=== PATIENT | female | born 1985 | race Two or more races ===

== ENCOUNTER → 2021-07-03 | Outpatient (CLI) | payer MEDICAID ==
[2021-07-03 09:16] LABS: Basophils # (auto) 0.1 10 ^3/uL (0-0.2); Eosinophils # (auto) 0.2 10 ^3/uL (0-0.8); Lymphocytes # (auto) 2.3 10 ^3/uL (0.4-5.4)
[2021-07-03 09:20] LABS: Basophils % (auto) 0.9 % (0.0-2.0); Hematocrit 38.6 % (36.0-46.0); Hemoglobin 12.7 g/dL (12.2-16.2); Lymphocytes % (auto) 28.7 % (10.0-50.0); Mean Corpuscular Hemoglobin 25.1 pg (28.0-32.0); Monocytes # (auto) 0.6 10 ^3/uL (0-1.3); Neutrophils % (auto) 61.4 % (37.0-80.0); Red Blood Cells 5.07 10^6/uL (4.0-5.20); White Blood Cell 8.2 10^3/uL (4.4-10.8)
[2021-07-03 09:49] LABS: Albumin 3.1 g/dL (3.4-5.0); Calcium 8.2 mg/dL (8.5-10.1)
[2021-07-03 09:55] LABS: BUN/Creatinine Ratio 23.4; Bilirubin, Total 0.3 mg/dL (0.2-1.0); Total Protein 7.2 g/dL (6.4-8.2)
== END | disposition home or self-care (01) ==
LOC: LAB 08:27
PROVIDERS: ATTEND Student in an Organized Health Care Education/Training Program
DX: G60.9 Hereditary and idiopathic neuropathy, unspecified (principal)
CPT/HCPCS: 36415; 80053; 80061; 83036; 84443; 85025

== ENCOUNTER 2021-07-19 09:54 | Emergency (ER) | payer MEDICAID ==
[~2021-07-19] VITALS: Ht 152.4 cm; Wt 90.7 kg
[2021-07-19 10:27] LABS: Urine Bacteria FEW /hpf (None Seen); Urine Blood 1+ /uL (Negative); Urine Mucus FEW (None Seen); Urine Specific Gravity 1.018 (1.001-1.035); Urine WBC 5 /hpf (0 - 5)
[2021-07-19 10:39] LABS: Basophils # (auto) 0.1 10 ^3/uL (0-0.2); Basophils % (auto) 1.1 % (0.0-2.0); Eosinophils # (auto) 0.1 10 ^3/uL (0-0.8); Lymphocytes # (auto) 2.2 10 ^3/uL (0.4-5.4); Lymphocytes % (auto) 24.2 % (10.0-50.0); Monocytes # (auto) 0.6 10 ^3/uL (0-1.3); Neutrophils # (auto) 6.1 10 ^3/uL (1.6-8.6)
[2021-07-19 10:40] LABS: Eosinophils % (auto) 1.2 % (0.0-7.0); Hematocrit 39.3 % (36.0-46.0); Hemoglobin 12.8 g/dL (12.2-16.2); Mean Corpuscular Hgb Conc. 32.5 g/dL (32.0-36.0); Mean Corpuscular Volume 76.8 fL (80.0-100.0); Monocytes % (auto) 6.2 % (0.0-12.0); Neutrophils % (auto) 67.3 % (37.0-80.0); Red Blood Cells 5.12 10^6/uL (4.0-5.20); Red Cell Distribution Width 16.2 % (11.8-14.3)
[2021-07-19 10:58] LABS: Albumin 3.3 g/dL (3.4-5.0); Calcium 8.9 mg/dL (8.5-10.1); Potassium 3.7 mmol/L (3.5-5.1)
[2021-07-19 11:01] LABS: BUN/Creatinine Ratio 16.1; Bilirubin, Total 0.2 mg/dL (0.2-1.0); Total Protein 7.7 g/dL (6.4-8.2)
[2021-07-19 14:10] VITALS: BP 123/53
== END 2021-07-19 14:38 | disposition home or self-care (01) ==
LOC: ER 09:54
DX: O20.0 Threatened abortion (principal); O23.41 Unspecified infection of urinary tract in pregnancy, first trimester; N39.0 Urinary tract infection, site not specified; Z3A.01 Less than 8 weeks gestation of pregnancy
CPT/HCPCS: 36415; 76801; 76817; 80053; 81001; 84702; 85025

== ENCOUNTER 2022-01-16 18:22 | Observation (INO) | payer MEDICAID ==
[~2022-01-16] VITALS: Ht 152.4 cm; Wt 90.7 kg
[2022-01-16] MEDS ORDERED: ceFAZolin 1GM/50ML 50 ML IV ONE (20:00)
[2022-01-16] MEDS ORDERED: LACTATED RINGER'S 1,000 ML IV SCH ×2 (20:00→23:30)
[2022-01-16] MEDS ORDERED: LACTATED RINGER'S 1,000 ML IV ONE (20:00)
[2022-01-16] MEDS: TERBUTALINE SULFATE 1 MG/ML 1ML VIAL SC SCH (20:31)
[2022-01-16] MEDS ORDERED: ACETAMINOPHEN 325 MG TAB PO ONE (20:45)
[2022-01-16 21:23] LABS: Urine Bacteria NONE SEEN /hpf (None Seen); Urine Blood Negative /uL (Negative); Urine Specific Gravity 1.013 (1.001-1.035); Urine WBC 53 /hpf (0 - 5); Urine WBC Clumps PRESENT /hpf (None Seen)
[2022-01-16] MEDS ORDERED: NIFEdipine 10 MG CAP PO ONE (21:30)
[2022-01-17] MEDS ORDERED: PREN-96 OR (03:31)
[2022-01-17] MEDS ORDERED: ceFAZolin 1GM/50ML 50 ML IV SCH (04:00)
[2022-01-17] MEDS ORDERED: NIFEdipine 10 MG CAP PO ONE ×2 (04:15→08:00)
[2022-01-17] MEDS ORDERED: BETAMETHASONE ACET (30mg/5ml) 5ml Vial 6mg/ml IM ONE (04:15)
[2022-01-17] MEDS ORDERED: ACETAMINOPHEN 325 MG TAB PO ONE (04:15)
[2022-01-17] MEDS: TERBUTALINE SULFATE 1 MG/ML 1ML VIAL SC SCH (06:56)
[2022-01-17] MEDS ORDERED: NITR-87 PO (08:07)
[2022-01-17] MEDS ORDERED: NIF10C PO (08:08)
== END 2022-01-17 08:32 | disposition home or self-care (01) ==
LOC: ER 18:22 → LDRP 19:03
PROVIDERS: ADMIT Obstetrics & Gynecology; ATTEND Obstetrics & Gynecology
DX: O23.03 Infections of kidney in pregnancy, third trimester (principal); Z20.822 Contact with and (suspected) exposure to COVID-19; O60.03 Preterm labor without delivery, third trimester; Z3A.32 32 weeks gestation of pregnancy
CPT/HCPCS: 36415; 59025; 76775; 76815; 81001; 81002; 87426; 94760; 96361; 96365; 96366; 96372; G0378; J0690; J0702; J3105; U0003; 96360

== ENCOUNTER → 2022-01-18 | Outpatient (CLI) | payer MEDICAID ==
[~2022-01-18] MED LIST: BETAMETHASONE ACET (30mg/5ml) 5ml Vial 6mg/ml IM ONE; FERR-7 PO; NIF10C PO; NITR-87 PO; PREN-96 OR; PREN-96 PO
== END | disposition home or self-care (01) ==
LOC: LDRP 08:08 → OBND 08:08 → UNDOADMOB 08:08 → UNDODISOB 08:32 → EDSTATUS 14:20
PROVIDERS: ATTEND Obstetrics & Gynecology
DX: O26.893 Other specified pregnancy related conditions, third trimester (principal); Z3A.32 32 weeks gestation of pregnancy
CPT/HCPCS: 96372; J0702

== ENCOUNTER 2022-01-24 08:34 | Observation (INO) | payer MEDICAID ==
[~2022-01-24 08:34] MED LIST changes: -BETAMETHASONE ACET (30mg/5ml) 5ml Vial 6mg/ml IM ONE; -FERR-7 PO; -PREN-96 PO
== END 2022-01-24 10:51 | disposition home or self-care (01) ==
LOC: LDRP 09:07 → UNDOADMOB 09:07 → LDRP 09:54 → UNDODISOB 10:51
PROVIDERS: ADMIT Obstetrics & Gynecology; ATTEND Obstetrics & Gynecology
DX: O60.03 Preterm labor without delivery, third trimester (principal); O26.893 Other specified pregnancy related conditions, third trimester; R51.9 Headache, unspecified; Z3A.33 33 weeks gestation of pregnancy
CPT/HCPCS: 59025; 81002; 94760; G0378

== ENCOUNTER 2022-01-31 10:08 | Observation (INO) | payer MEDICAID | END 2022-01-31 11:31 | disposition home or self-care (01) | LOC: LDRP 10:08 → UNDOADMOB 10:08 → LDRP 10:53 → UNDODISOB 11:31 | PROVIDERS: ADMIT Obstetrics & Gynecology; ATTEND Obstetrics & Gynecology | DX: O60.03 Preterm labor without delivery, third trimester (principal); Z3A.34 34 weeks gestation of pregnancy | CPT/HCPCS: 59025; 81002; 94760; G0378 ==

== ENCOUNTER 2022-02-07 08:03 | Observation (INO) | payer MEDICAID ==
[~2022-02-07 08:03] MED LIST changes: -NITR-87 PO
== END 2022-02-07 10:25 | disposition home or self-care (01) ==
LOC: LDRP 09:21 → UNDOADMOB 09:21 → LDRP 09:27
PROVIDERS: ADMIT Obstetrics & Gynecology; ATTEND Obstetrics & Gynecology
DX: O60.03 Preterm labor without delivery, third trimester (principal); Z3A.35 35 weeks gestation of pregnancy
CPT/HCPCS: 59025; 81002; 94760; G0378

== ENCOUNTER 2022-03-11 09:00 | Observation (INO) | payer MEDICAID | END 2022-03-11 10:50 | disposition home or self-care (01) | LOC: LDRP 09:00 | PROVIDERS: ADMIT Obstetrics & Gynecology; ATTEND Obstetrics & Gynecology | DX: O48.0 Post-term pregnancy (principal); O62.9 Abnormality of forces of labor, unspecified; Z3A.40 40 weeks gestation of pregnancy | CPT/HCPCS: 59025; 76818; 81002; G0378 ==

== ENCOUNTER 2022-03-13 22:17 | Inpatient (IN) | payer MEDICAID ==
[~2022-03-13] VITALS: Ht 152.4 cm; Wt 94.3 kg
[2022-03-13] MEDS ORDERED: PREN-96 PO ×2 (23:50→23:51)
[2022-03-13] MEDS ORDERED: FERR-7 PO (23:50)
[2022-03-13] MEDS: LACTATED RINGER'S 1,000 ML IV SCH (23:52)
[2022-03-14] MEDS ORDERED: PROMETHAZINE HCL 25 MG/ML 1ML IV PRN
[2022-03-14] MEDS ORDERED: miSOPROStol 50 MCG per PRE-CUT 1/2 TAB PO PRN
[2022-03-14] MEDS ORDERED: LIDOCAINE 2%HCL (LOCAL ANESTH.) INJ 10ml MDV IJ PRN
[2022-03-14] MEDS ORDERED: PHISODERM TOP SOLN 240ML BTL TOP PRN
[2022-03-14] MEDS ORDERED: DERMOPLAST 60ML BOTTLE TOP PRN
[2022-03-14] MEDS ORDERED: WITCH HAZEL-GLYCERIN PAD TOP PRN
[2022-03-14] MEDS ORDERED: BUTORPHANOL TARTRATE 2 MG/1 ML VIAL IV PRN ×2
[2022-03-14 00:27] LABS: Alcohol, Urine < 3.0 mg/dL (0-10); Amphetamine Screen, Urine NEGATIVE (NEGATIVE); Barbiturate Scree,Urine NEGATIVE (NEGATIVE); Benzodiazephine Screen, Urine NEGATIVE (NEGATIVE); Cannabinoid Screen, Urine NEGATIVE (NEGATIVE); Cocaine Screen, Urine NEGATIVE (NEGATIVE); Opiate Scree,Urine NEGATIVE (NEGATIVE); Phencyclidine Screen, Urine NEGATIVE (NEGATIVE)
[2022-03-14 00:39] LABS: Urine Bacteria NONE SEEN /hpf (None Seen); Urine Blood 2+ /uL (Negative); Urine Specific Gravity 1.022 (1.001-1.035); Urine WBC 111 /hpf (0 - 5)
[2022-03-14] MEDS ORDERED: LACT. RINGERS/OXYTOCIN 20UNITS 1,000 ML IV SCH (00:45)
[2022-03-14] MEDS ORDERED: TERBUTALINE SULFATE 1 MG/ML 1ML VIAL SC PRN (00:45)
[2022-03-14] MEDS ORDERED: PENICILLIN G POT 5MIL/D5 50ML 50 ML IV ONE (00:45)
[2022-03-14] MEDS ORDERED: LACT. RINGERS/OXYTOCIN 20UNITS 500 ML IV ONE ×2 (00:45→01:15)
[2022-03-14 01:07] LABS: Albumin 2.9 g/dL (3.4-5.0); BUN/Creatinine Ratio 22.9; Calcium 8.7 mg/dL (8.5-10.1); INR 0.88 (0.9-1.15); Partial Thromboplastin Time 30.8 sec (24.6-33.4)
[2022-03-14 01:11] LABS: Bilirubin, Total 0.2 mg/dL (0.2-1.0); Total Protein 7.3 g/dL (6.4-8.2)
[2022-03-14] MEDS ORDERED: CALCIUM CARB 500 MG CHEW TAB PO ONE (01:45)
[2022-03-14 02:15] LABS: Basophils # (auto) 0 10 ^3/uL (0-0.2); Basophils % (auto) 0.2 % (0.0-2.0); Eosinophils # (auto) 0.1 10 ^3/uL (0-0.8); Eosinophils % (auto) 0.9 % (0.0-7.0); Hematocrit 41.2 % (36.0-46.0); Hemoglobin 12.6 g/dL (12.2-16.2); Lymphocytes % (auto) 28.6 % (10.0-50.0); Mean Corpuscular Hemoglobin 23.5 pg (28.0-32.0); Mean Corpuscular Hgb Conc. 30.5 g/dL (32.0-36.0); Mean Corpuscular Volume 77.1 fL (80.0-100.0); Monocytes # (auto) 0.9 10 ^3/uL (0-1.3); Monocytes % (auto) 6.2 % (0.0-12.0); Neutrophils # (auto) 8.9 10 ^3/uL (1.6-8.6); Neutrophils % (auto) 64.1 % (37.0-80.0); Red Blood Cells 5.34 10^6/uL (4.0-5.20); White Blood Cell 13.8 10^3/uL (4.4-10.8)
[2022-03-14 02:19] LABS: Red Cell Distribution Width 22.4 % (11.8-14.3)
[2022-03-14] MEDS ORDERED: OXYTOCIN 10UNIT/ML 1ML VIAL ONE (02:53)
[2022-03-14 04:13] VITALS: BP 107/60
[2022-03-14] MEDS: IBUPROFEN 600 MG TAB PO PRN ×3 (04:27→19:00)
[2022-03-14] MEDS ORDERED: PENICILLIN G POTASSIUM 2,500,000 UNITS in D5W 5% 50 ML IV SCH (04:45)
[2022-03-14 07:00] VITALS: BP 127/77
[2022-03-14] MEDS: LACTATED RINGER'S 1,000 ML IV SCH (08:00)
[2022-03-14 11:00] VITALS: BP 120/76
[2022-03-14 15:00] VITALS: BP 120/56
[2022-03-14 19:20] VITALS: BP 98/60
[2022-03-14 23:17] VITALS: BP 99/60
[2022-03-15] MEDS ORDERED: ACETAMINOPHEN 325 MG TAB PO PRN (00:30)
[2022-03-15 03:00] VITALS: BP 98/65
[2022-03-15 07:00] VITALS: BP 104/72
[2022-03-15] MEDS: IBUPROFEN 600 MG TAB PO PRN (07:09)
[2022-03-15 08:06] LABS: RPR Non Reactive (Non Reactive)
== END 2022-03-15 10:25 | disposition home or self-care (01) | DRG 560 ==
LOC: LDRP 22:17
PROVIDERS: ADMIT Obstetrics & Gynecology; ATTEND Obstetrics & Gynecology
PROC: 10E0XZZ Delivery of Products of Conception, External Approach (ICD-10-PCS; principal; 2022-03-14)
DX: O99.824 Streptococcus B carrier state complicating childbirth (principal); Z37.0 Single live birth; Z20.822 Contact with and (suspected) exposure to COVID-19; Z3A.40 40 weeks gestation of pregnancy
CPT/HCPCS: 36415; 59025; 59409; 80053; 80307; 81001; 81002; 85025; 85610; 85730; 86592; 86850; 86900; 86901; 94760; 96360; 96361; 96366; G0378; J2540; J2590; J7060

== ENCOUNTER 2022-05-25 06:26 | Day surgery (SDC) | payer MEDICAID ==
[2022-05-23 10:37] LABS: Eosinophils # (auto) 0.1 10 ^3/uL (0-0.8); Lymphocytes # (auto) 2.1 10 ^3/uL (0.4-5.4); Monocytes # (auto) 0.7 10 ^3/uL (0-1.3); White Blood Cell 13.3 10^3/uL (4.4-10.8)
[2022-05-23 10:39] LABS: Basophils # (auto) 0.2 10 ^3/uL (0-0.2); Basophils % (auto) 1.2 % (0.0-2.0); Eosinophils % (auto) 0.9 % (0.0-7.0); Hematocrit 39.9 % (36.0-46.0); Hemoglobin 13.1 g/dL (12.2-16.2); Lymphocytes % (auto) 15.7 % (10.0-50.0); Mean Corpuscular Hemoglobin 26.8 pg (28.0-32.0); Mean Corpuscular Hgb Conc. 32.9 g/dL (32.0-36.0); Mean Corpuscular Volume 81.3 fL (80.0-100.0); Monocytes % (auto) 5.2 % (0.0-12.0); Neutrophils # (auto) 10.2 10 ^3/uL (1.6-8.6); Red Blood Cells 4.91 10^6/uL (4.0-5.20); Red Cell Distribution Width 16.5 % (11.8-14.3)
[2022-05-23 10:50] LABS: INR 0.97 (0.9-1.15); Partial Thromboplastin Time 30.8 sec (24.6-33.4)
[2022-05-23 10:56] LABS: Urine Bacteria FEW /hpf (None Seen); Urine Blood 3+ /uL (Negative); Urine Mucus FEW (None Seen); Urine Specific Gravity 1.021 (1.001-1.035); Urine WBC 23 /hpf (0 - 5)
[2022-05-23 11:11] LABS: Albumin 3.6 g/dL (3.4-5.0); BUN/Creatinine Ratio 23.4; Calcium 8.2 mg/dL (8.5-10.1); Potassium 3.9 mmol/L (3.5-5.1)
[2022-05-23 11:13] LABS: Bilirubin, Total 0.6 mg/dL (0.2-1.0); Total Protein 7.9 g/dL (6.4-8.2)
[2022-05-24 08:06] LABS: RPR Non Reactive (Non Reactive)
[~2022-05-25] VITALS: Ht 152.4 cm; Wt 94.3 kg
[2022-05-25] MEDS ORDERED: BUPIVACAINE 0.25% INJ 50ML VIAL ONE (06:42)
[2022-05-25] MEDS ORDERED: EPINEPHrine HCL 1 MG/1 ML AMP ONE (06:42)
[2022-05-25] MEDS ORDERED: ceFAZolin 1GM/50ML 100 ML IV ONE (06:59)
[2022-05-25] MEDS ORDERED: ROCURONIUM 10MG/ML 10ML VIAL IV ONE (07:32)
[2022-05-25] MEDS ORDERED: MIDAZOLAM HCL 2MG/2ML 2ml VIAL (1mg/ml) ONE (07:32)
[2022-05-25] MEDS ORDERED: fentaNYL CITRATE 100 MCG/2 ML VL ONE (07:32)
[2022-05-25] MEDS ORDERED: LIDOCAINE 1% (LOCAL ANESTH.) PF 5ml SDV ONE (08:17)
[2022-05-25] MEDS ORDERED: ONDANSETRON HCL 4 MG/2 ML VIAL ONE (08:17)
[2022-05-25] MEDS ORDERED: PROPOFOL 10 MG/ML 20 ML IV ONE (08:17)
[2022-05-25] MEDS ORDERED: GLYCOPYRROLATE 0.2 MG/ML 1ML VIAL ONE ×2 (08:25→08:46)
[2022-05-25] MEDS ORDERED: ONDANSETRON HCL 4 MG/2 ML VIAL IV PRN ×2 (08:30→08:45)
[2022-05-25] MEDS ORDERED: HYDROmorphone HCL 2 MG/ML VL/or syr IV PRN ×2 (08:30)
[2022-05-25] MEDS ORDERED: IBUP800T27 PO (08:34)
[2022-05-25] MEDS ORDERED: HYDR-4902 PO (08:34)
[2022-05-25] MEDS ORDERED: ONDA-144 PO (08:34)
[2022-05-25] MEDS ORDERED: LACTATED RINGER'S 1,000 ML IV SCH (08:45)
[2022-05-25] MEDS ORDERED: NEOSTIGMINE 1 MG/ML INJ (10mg/10ML VIAL) ONE (08:46)
[2022-05-25] MEDS ORDERED: HYDROmorphone HCL 2 MG/ML VL/or syr ONE (09:10)
[2022-05-25 09:35] VITALS: BP 107/68
== END 2022-05-25 09:55 | disposition home or self-care (01) ==
LOC: SUR 06:26
PROVIDERS: ATTEND Obstetrics & Gynecology
DX: Z30.2 Encounter for sterilization (principal); E66.01 Morbid (severe) obesity due to excess calories; Z20.822 Contact with and (suspected) exposure to COVID-19
CPT/HCPCS: 36415; 58671; 80053; 81001; 81025; 84702; 85025; 85610; 85730; 86592; 86850; 86900; 86901; J0171; J0690; J1170; J2250; J2405; J2704; J3010; J3490; U0003

== ENCOUNTER 2023-05-14 22:52 | Emergency (ER) | payer MEDICAID ==
[~2023-05-14 22:52] MED LIST changes: +HYDR-4902 PO; +IBUP-1456 PO; -NIF10C PO; +ONDA-144 PO; -PREN-96 OR
[2023-05-15] MEDS ORDERED: LIDO5PAD8 EX (02:30)
[2023-05-15] MEDS ORDERED: KETOROLAC TROMETH 60MG/2ML VIAL IM ONE (02:30)
[2023-05-15] MEDS ORDERED: CYCL-839 PO (02:30)
[2023-05-15] MEDS ORDERED: NAP500T PO (02:30)
[2023-05-15 03:49] VITALS: BP 101/78; PULSE 83; RESP 20; TEMP 97.9; O2SAT 98
== END 2023-05-15 03:54 | disposition home or self-care (01) ==
LOC: ER 22:52
DX: S96.812A Strain of other specified muscles and tendons at ankle and foot level, left foot, initial encounter (principal); Z79.899 Other long term (current) drug therapy; X58.XXXA Exposure to other specified factors, initial encounter; Y93.89 Activity, other specified; Y92.89 Other specified places as the place of occurrence of the external cause; Y99.8 Other external cause status
CPT/HCPCS: 73610; 96372; 99283; J1885

== ENCOUNTER 2025-04-01 09:55 | Outpatient (CLI) | payer MEDICAID ==
[~2025-04-01 09:55] MED LIST changes: +CYCL-839 PO; +LIDO5PAD12 EX; +NAP500T PO
[2025-04-01 10:34] LABS: Hematocrit 42.3 % (36.0-46.0); Hemoglobin 14.3 g/dL (12.2-16.2); Mean Corpuscular Hemoglobin 28.1 pg (28.0-32.0); Mean Corpuscular Volume 83.2 fL (80.0-100.0); Nucleated Red Blood Cells % 0.0 %
[2025-04-01 10:56] LABS: Alanine Aminotransferase 17 U/L (7-40); Albumin 4.5 g/dL (3.2-4.8); Alkaline Phosphatase 89 U/L (46-116); Anion Gap 9 (5-15); BUN/Creatinine Ratio 13.4 (10.0-20.0); Bilirubin, Total 0.5 mg/dL (0.2-1.0); Blood Urea Nitrogen 9 mg/dL (9-23); Calcium 9.0 mg/dL (8.7-10.4); Carbon Dioxide 26 mmol/L (20-31); Chloride 105 mmol/L (98-107); Cholesterol 156 mg/dL (< 200); Glucose 98 mg/dL (74-106); HDL Cholesterol 44 mg/dL (40-59); Potassium 4.0 mmol/L (3.5-5.1); Sodium 140 mmol/L (136-145); Total Protein 7.5 g/dL (5.7-8.2); Triglycerides 136 mg/dL (< 150)
[2025-04-02 11:17] LABS: Hepatitis A Total Antibody Positive (Negative)
[2025-04-02 11:18] LABS: Hepatitis B Surface Antigen Negative (Negative); Hepatitis C Antibody Negative (Negative)
== END 2025-04-01 17:00 | disposition home or self-care (01) ==
LOC: LAB 09:55
PROVIDERS: ATTEND Licensed Practical Nurse
DX: I10 Essential (primary) hypertension (principal); E78.2 Mixed hyperlipidemia; E55.9 Vitamin D deficiency, unspecified
CPT/HCPCS: 36415; 80053; 80061; 82043; 82306; 85025; 86704; 86706; 86708; 86803; 87340

== ENCOUNTER 2025-04-28 10:08 | Outpatient (CLI) | payer MEDICAID | END 2025-04-28 17:00 | disposition home or self-care (01) | LOC: LAB 10:08 | PROVIDERS: ATTEND Internal Medicine | DX: Z13.1 Encounter for screening for diabetes mellitus (principal); Z13.29 Encounter for screening for other suspected endocrine disorder | CPT/HCPCS: 36415; 83036; 84443 ==